=== PATIENT | male | born 1955 | race Two or more races ===

== ENCOUNTER 2018-07-06 19:21 | Inpatient (IN) | payer MEDICARE, OTHER ==
[~2018-07-06] VITALS: Ht 172.7 cm; Wt 66.7 kg
--- NOTE | 2018-07-06 19:21 | NUR ---
ED Nurse Note: pt brought in by amb from [facility] c/o abd pain started today and snf staff gave pt tylenol and seroquel prior to coming to hospital. pt denied abd pain nor n/v/d ENR to hospital, pt currently denies pain, no n/v/d noted. pt AA&ox4, gcs=15, skin warm and dry, resp even and unlabored on RA, will cont monitor. VSS.
[2018-07-06 19:30] VITALS: BP 120/60
--- NOTE | 2018-07-06 19:50 | NUR ---
ED Nurse Note: pt sleeping at this time, fatigued and lethargic, arousable to light pain and shake, iv intact and patent, noted mild congestion but airway intact and resp even and unlabored, will cont monitor.
[2018-07-06 20:06] LABS: EOSINOPHILS % (AUTO) 1.6 % (0.0-3.0); HEMATOCRIT 45.2 % (42.0-52.0); HEMOGLOBIN 14.7 G/DL (14.2-18.0); MEAN CORPUSCULAR VOLUME 96 FL (80-99); MONOCYTES % (AUTO) 7.8 % (1.0-10.0); NEUTROPHILS % (AUTO) 65.7 % (45.0-75.0); PLATELET COUNT 200 K/UL (150-450)
[2018-07-06 20:25] LABS: ANION GAP 8 mmol/L (5-15); BLOOD UREA NITROGEN 13 mg/dL (7-18); CARBON DIOXIDE 30 MMOL/L (21-32); CHLORIDE 101 MMOL/L (98-107); CREATININE 0.7 MG/DL (0.55-1.30); POTASSIUM 4.2 MMOL/L (3.5-5.1); SODIUM 139 MMOL/L (136-145)
[2018-07-06 20:37] LABS: ALANINE AMINOTRANSFERASE 43 U/L (12-78); ALBUMIN 3.7 G/DL (3.4-5.0); ALBUMIN/GLOBULIN RATIO 0.8 (1.0-2.7); ALKALINE PHOSPHATASE 68 U/L (46-116); ASPARTATE AMINO TRANSFERASE 40 U/L (15-37); BILIRUBIN,TOTAL 0.4 MG/DL (0.2-1.0)
--- NOTE | 2018-07-06 21:00 | NUR ---
ED Nurse Note: NOTED O2SAT 88% STARTED PT ON O2 2L VIA NC, ERMD NOTIFIED, WILL CONT MONITOR. O2 SAT WENT UP TO 96%
[2018-07-06 21:15] LABS: APPEARANCE,URINE CLEAR; BILIRUBIN, URINE NEGATIVE (NEGATIVE); COLOR,URINE PALE YELLOW; GLUCOSE, URINE (UA) NEGATIVE (NEGATIVE); KETONES,URINE NEGATIVE (NEGATIVE); LEUKOCYTE ESTERASE ,URINE NEGATIVE (NEGATIVE); NITRITE,URINE NEGATIVE (NEGATIVE); PH,URINE 6 (4.5-8.0); PROTEIN,URINE 3+ (NEGATIVE); UROBILINOGEN,URINE NORMAL MG/DL (0.0-1.0)
[2018-07-06 21:30] VITALS: BP 118/67
--- NOTE | 2018-07-06 22:00 | NUR ---
ED Nurse Note: ERMD NOTIFIED REGARDING PT'S CONDITION O2SAT, RT CONTACTED FOR SUCTION, WILL CONT MONITOR.
--- NOTE | 2018-07-06 22:00 | NUR ---
ED Nurse Note: Noted pressure ulcer on left buttock area possible stg 2. picture taken and uploaded.
[2018-07-06] MEDS ORDERED: NORVASC5 MG ORAL (22:07)
[2018-07-06] MEDS ORDERED: INVEGA SUS156 MG/11 IM (22:07)
[2018-07-06] MEDS ORDERED: TYLENOL EXTRA500 MG ORAL (22:07)
[2018-07-06] MEDS ORDERED: INVEGA3 MG PO (22:07)
[2018-07-06] MEDS ORDERED: MULTIVITAMINS1 EAC8 ORAL (22:07)
[2018-07-06] MEDS ORDERED: FOLIC ACID1 MG ORAL (22:07)
[2018-07-06] MEDS ORDERED: METFORMIN HCL5000 GM MC (22:07)
[2018-07-06] MEDS ORDERED: SEROQUEL50 MG ORAL (22:08)
--- NOTE | 2018-07-06 22:43 | Emergency Room Report ---
History of Present Illness General Chief Complaint: Abdominal Pain Source: Patient, EMS Present Illness HPI This patient [facility]. There was concern that the patient was having abdominal pain. He also has a known ventral hernia. He was given Seroquel and Tylenol just prior to arrival. The patient himself denies pain. There is no other complaints. Allergies: Coded Allergies: No Known Allergies (Unverified , 07/06/18) Patient History Past Medical History: see triage record, old chart reviewed, DM, CVA/TIA, other Social History: Denies: smoking, alcohol use, drug use Reviewed Nursing Documentation: PMH: Agreed; PSxH: Agreed Nursing Documentation-PMH Hx Diabetes: Yes Hx Gastrointestinal Problems: Yes - Constipation Hx Dialysis: Yes - Hep C History Of Psychiatric Problem: Yes - Schizo, Bibolar Hx Cerebrovascular Accident: Yes - atherosclerotic Review of Systems All Other Systems: negative except mentioned in HPI Physical Exam Vital Signs Date Time Temp Pulse Resp B/P (MAP) Pulse Ox O2 Delivery O2 Flow Rate FiO2 07/06/18 19:09 97.5 83 22 127/60 94 Room Air Sp02 EP Interpretation: reviewed, normal General Appearance: no apparent distress, alert, GCS 15, non-toxic Head: normocephalic, atraumatic Eyes: bilateral eye normal inspection, bilateral eye PERRL ENT: hearing grossly normal, normal pharynx, no angioedema, normal voice Neck: full range of motion, supple/symm/no masses Respiratory: chest non-tender, lungs clear, normal breath sounds, no respiratory distress, no retraction, no accessory muscle use, speaking full sentences Cardiovascular #1: regular rate, rhythm, no edema Gastrointestinal: normal bowel sounds, non tender, soft, non-distended, no guarding, no rebound, other - Large reducible ventral hernia Rectal: deferred Musculoskeletal: back normal, gait/station normal, normal range of motion, non- tender Neurologic: alert, oriented x3, responsive, motor strength/tone normal, sensory intact, speech normal Psychiatric: judgement/insight normal, memory normal, mood/affect normal, no suicidal/homicidal ideation Skin: normal color, no rash, warm/dry, well hydrated Medical Decision Making Diagnostic Impression: Primary Impression: Ventral hernia Additional Impression: Hypoxemia ER Course This patient has a reducible ventral hernia. There was no evidence of an acute abdomen during the patient's ED course. I am unsure why this patient was originally sent here to the emergency department. However, after planning to send this patient back to the penitentiary facility, the patient had profound episodes of hypoxemia. The patient was dropped his O2 saturations to 80%. This was primarily during sleeping episodes but was occurring recurrently. The patient did improve with oxygen. Possibly this patient has obstructive sleep apnea. Regardless, used to saturations were so profound that I did not feel comfortable sending this patient back to the penitentiary facility at this time. The patient will be admitted for further evaluation and monitoring of his hypoxemia. Laboratory Tests Test 07/06/18 19:45 07/06/18 20:46 White Blood Count 8.0 K/UL (4.8-10.8) Red Blood Count 4.70 M/UL (4.70-6.10) Hemoglobin 14.7 G/DL (14.2-18.0) Hematocrit 45.2 % (42.0-52.0) Mean Corpuscular Volume 96 FL (80-99) Mean Corpuscular Hemoglobin 31.2 PG (27.0-31.0) H Mean Corpuscular Hemoglobin Concent 32.5 G/DL (32.0-36.0) Red Cell Distribution Width 14.0 % (11.6-14.8) Platelet Count 200 K/UL (150-450) Mean Platelet Volume 6.6 FL (6.5-10.1) Neutrophils (%) (Auto) 65.7 % (45.0-75.0) Lymphocytes (%) (Auto) 24.0 % (20.0-45.0) Monocytes (%) (Auto) 7.8 % (1.0-10.0) Eosinophils (%) (Auto) 1.6 % (0.0-3.0) Basophils (%) (Auto) 1.0 % (0.0-2.0) Sodium Level 139 MMOL/L (136-145) Potassium Level 4.2 MMOL/L (3.5-5.1) Chloride Level 101 MMOL/L (98-107) Carbon Dioxide Level 30 MMOL/L (21-32) Anion Gap 8 mmol/L (5-15) Blood Urea Nitrogen 13 mg/dL (7-18) Creatinine 0.7 MG/DL (0.55-1.30) Estimate Glomerular Filtration Rate > 60 mL/min (>60) Glucose Level 95 MG/DL (74-106) Calcium Level 10.0 MG/DL (8.5-10.1) Total Bilirubin 0.4 MG/DL (0.2-1.0) Aspartate Amino Transferase (AST) 40 U/L (15-37) H Alanine Aminotransferase (ALT) 43 U/L (12-78) Alkaline Phosphatase 68 U/L (46-116) Troponin I 0.000 ng/mL (0.000-0.056) Total Protein 8.5 G/DL (6.4-8.2) H Albumin 3.7 G/DL (3.4-5.0) Globulin 4.8 g/dL Albumin/Globulin Ratio 0.8 (1.0-2.7) L Lipase 167 U/L (73-393) Urine Color Pale yellow Urine Appearance Clear Urine pH 6 (4.5-8.0) Urine Specific [place] 1.015 (1.005-1.035) Urine Protein 3+ (NEGATIVE) H Urine Glucose (UA) Negative (NEGATIVE) Urine Ketones Negative (NEGATIVE) Urine Blood Negative (NEGATIVE) Urine Nitrite Negative (NEGATIVE) Urine Bilirubin Negative (NEGATIVE) Urine Urobilinogen Normal MG/DL (0.0-1.0) Urine Leukocyte Esterase Negative (NEGATIVE) Urine RBC 0-2 /HPF (0 - 0) H Urine WBC 0-2 /HPF (0 - 0) Urine Squamous Epithelial Cells None /LPF (NONE/OCC) Urine Bacteria None /HPF (NONE) EKG Diagnostic Results Rate: normal Rhythm: NSR ST Segments: no acute changes Rhythm Strip Diag. Results EP Interpretation: yes Rate: 90's Rhythm: NSR, other - Occassional PVC's Chest X-Ray Diagnostic Results Chest X-Ray Diagnostic Results : Chest X-Ray Ordered: Yes # of Views/Limited/Complete: 1 View Indication: Other Interpretation: no consolidation, no effusion, no pneumothorax, no acute cardiopulmonary disease Impression: No acute disease Electronically Signed by: Nkechi Lund DO CT/MRI/US Diagnostic Results CT/MRI/US Diagnostic Results : Imaging Test Ordered: CT head Impression No acute findings. Specifically no intracranial bleed, mass effect or edema. See official report. Last Vital Signs Date Time Temp Pulse Resp B/P (MAP) Pulse Ox O2 Delivery O2 Flow Rate FiO2 07/06/18 22:02 97.5 87 20 120/60 94 Room Air Disposition: ADMITTED INPATIENT Condition: Serious Scripts Metformin Hcl* (METFORMIN HCL*) 500 Mg Tablet 500 MG ORAL TWICE A DAY, #60 TAB Prov: Byron Chu MD 07/08/18 Referrals: Tej Kulkarni MD (PCP) Nkechi Lund DO Jul 06, 2018 22:43
--- NOTE | 2018-07-06 22:45 | NUR ---
ED Nurse Note: PT CURRENT O2SAT 96% ON NC 2 L VIA NC, LS MORE CLEAR AFTER SUCTION, DECREASED CONGESTION NOTED, WILL CONT MONITOR.
--- NOTE | 2018-07-06 23:10 | NUR ---
ED Nurse Note: RT at the bedside for ABG, verified with ERMD regarding Bipap status, hold at this time. PT LS= decrease rhonchi, more clear, decreased congestion noted after suction, will cont monitor. No s/s resp distress at this time.
[2018-07-06 23:30] VITALS: BP 126/67
[2018-07-06] MEDS ORDERED: Isovue-300 100ml vial INJ PRN (23:30)
--- NOTE | 2018-07-07 | NUR ---
ED Nurse Note: pt currently agitated, trying to stand out of bed and walk, noted weakness, noted pulled out iv hanging next to pt. Dressing applied, ERMD notified.
[2018-07-07] MEDS ORDERED: LORazepam Inj 2mg/ml 1ml IM ONE (00:45)
[2018-07-07] MEDS ORDERED: LORazepam Inj 2mg/ml 1ml ONE (00:47)
--- NOTE | 2018-07-07 01:00 | NUR ---
ED Nurse Note: pt transferred to new bed, cleaned and changed.
--- NOTE | 2018-07-07 01:20 | NUR ---
ED Nurse Note: IV started on R Upperarm, 20g, pt tolerated well, dressing applied.
[2018-07-07 01:30] VITALS: BP 130/81
--- NOTE | 2018-07-07 02:19 | NUR ---
ED Nurse Note: spoke with Dr. Akbar and received admission order.
[2018-07-07 03:00] VITALS: BP 111/56
--- NOTE | 2018-07-07 03:16 | NUR ---
ED Nurse Note: report given to RN JOSUE and endorsed care, pt sleeping comfortably at this time, VSS, airway intact, resp even and unlabored on NC, NSR on engine monitor. NPO status, IV patent and intact.
--- NOTE | 2018-07-07 03:30 | NUR ---
ED Nurse Note: RECIEVED PT ON GURNEY SLEEPING, PT IS ON HOSPITAL BED, PT IS TO BE ADMITTED TO FLOOR BED WHEN BEDS ARE AVAILABLE THIS AM, PT IS ON CARDIAC MONITORING, HAS PATENT IV LINE IN RIGHT ARM WITH FLUIDS INFUSING, NO SOB OR LABORED BREATHING NOTED, PT O2 SAT=94% ON 2L N/C, PT REPOSITIONED AND TURNED WITH PILLOW SUPPORT, WILL RESUME CARE ORDERED AND CONTINUE TO CLOSELY MONITOR.
[2018-07-07 05:00] VITALS: BP 108/49
--- NOTE | 2018-07-07 05:30 | NUR ---
ED Nurse Note: PT CONTINUES TO SLEEP IN BED, AROUSES TO VERBAL STIMULI, PT REMAINS ON CARDIAC MONITORING, IV SITE PATENT WITH KERLIX WRAPPED, V/S STABLE, NO SOB OR LABORED BREATHING, NAD OR CHANGES NOTED, WILL CONTINUE TO CLOSELY MONITOR WHILE PT WAITING FOR ROOM PLACEMENT.
[2018-07-07 07:00] VITALS: BP 144/67
--- NOTE | 2018-07-07 07:15 | NUR ---
ED Nurse Note: SHIFT REPORT GIVEN TO AM NURSE, PT TO BE ADMITTED TO FLOOR BED, PT IN BED SLEEPING HAS INTERMITTENT PERIODS WHERE HE YELLS OUT AND SHOUTS WANTING TO GO HOME, PT REORIENTED AND REMAINS CALM IN BED, NAD NOTED DURING SHIFT REPORT, IV SITE PATENT.
[2018-07-07] MEDS: NovoLOG Insulin Flexpen SUBQ SCH ×4 (07:30→21:00)
--- NOTE | 2018-07-07 07:30 | NUR ---
ED Nurse Note: Received patient in bed a/o x 3, able to make his needs known. VSS, see flowsheet. school lunch monitor applied. Resp even and unlabored. IV site intact, patent, infusing IVF as ordered.
--- NOTE | 2018-07-07 07:50 | NUR ---
ED Nurse Note: blood drawn and sent down to lab.
[2018-07-07 08:15] VITALS: BP 148/72
[2018-07-07 08:19] LABS: BASOPHILS % (AUTO) 0.7 % (0.0-2.0); EOSINOPHILS % (AUTO) 1.3 % (0.0-3.0); HEMATOCRIT 40.3 % (42.0-52.0); HEMOGLOBIN 12.9 G/DL (14.2-18.0); LYMPHOCYTES % (AUTO) 20.4 % (20.0-45.0); MEAN CORPUSCULAR VOLUME 96 FL (80-99); MONOCYTES % (AUTO) 8.2 % (1.0-10.0); NEUTROPHILS % (AUTO) 69.4 % (45.0-75.0); PLATELET COUNT 208 K/UL (150-450); RED BLOOD COUNT 4.21 M/UL (4.70-6.10); RED CELL DISTRIBUTION WIDTH 13.9 % (11.6-14.8); WHITE BLOOD COUNT 7.1 K/UL (4.8-10.8)
[2018-07-07 08:31] LABS: ANION GAP 6 mmol/L (5-15); BLOOD UREA NITROGEN 11 mg/dL (7-18); CALCIUM 9.4 MG/DL (8.5-10.1); CARBON DIOXIDE 29 MMOL/L (21-32); CHLORIDE 105 MMOL/L (98-107); CREATININE 0.6 MG/DL (0.55-1.30); POTASSIUM 3.8 MMOL/L (3.5-5.1); SODIUM 140 MMOL/L (136-145)
--- NOTE | 2018-07-07 08:49 | NUR ---
ED Nurse Note: Report given to Cornelia JONES over the phone. endorsed patient to Cornelia JONES, patient transferred to [facility]. Dr Hager by the bedside. No belongings noted, patient went up on the [facility] bed, bed alarm on, call light within reach. IV site intact, patent.
--- NOTE | 2018-07-07 08:50 | NUR ---
NURSE NOTES: Received report from Adelia JONES over the phone. Pt was admitted from ER, via hospital bed. Pt is awake, alert, oriented x2, confused. Pt is on room air, with sP02 at 96%. No signs/symptoms or reports of pain or any discomfort at this time. IV access is on right UA #20G, saline lock, patent/intact. Pt has no belongings with him. Pt is refusing the Tele monitor, Dr Hager informed, and order given to transfer pt to med-surg. Pt is confused, agitated, attempting to get out of bed. Skin has left buttocks stage II. Bed is placed in lowest position, three side rails up, brakes engaged, alarm on, call light within easy reach. Will continue to monitor pt and follow plan of care per MD orders and protocol. Pt to be transferred to med surg once room becomes available. Charge nurse aware.
[2018-07-07] MEDS ORDERED: Pantoprazole Inj IVP SCH (09:00)
[2018-07-07] MEDS ORDERED: Heparin 5000 units/ml inj SUBQ SCH (09:00)
--- NOTE | 2018-07-07 09:49 | Diagnostic Imaging Report ---
Indication: Headache Technique: Contiguous 5 mm thick transaxial imaging of the head obtained in a Siemens Sensation [address] scanner. Soft tissue and bone windows generated. Automatic Exposure Control was utilized. Total Dose length Product (DLP): 1439.[address] Dose Index Volume (CTDIvol): 70.38 mGy Comparison: none Findings: There is mild prominence of the ventricles, basal cisterns, and cerebral sulci consistent with atrophy. Mild, nonspecific, white matter hypoattenuation is noted throughout the brain consistent with chronic small vessel disease. There is no midline shift, edema, acute hemorrhage, mass effect, or abnormal extra-axial fluid collections. Bones and extra osseous soft tissues are unremarkable. Impression: No acute intracranial bleed, mass effect or edema. Mild atrophy of the brain. Nonspecific white matter hypoattenuation probably due to chronic small vessel disease. [facility] has communicated the preliminary results to the Emergency Department. Their findings are largely concordant with this report. The CT scanner at [facility] is accredited by the [employer] and the scans are performed using dose optimization techniques as appropriate to a performed exam including Automatic Exposure control.
--- NOTE | 2018-07-07 11:41 | Diagnostic Imaging Report ---
Indication: Dyspnea Comparison: None A single view chest radiograph was obtained. Findings: There is mild left basal atelectasis. Heart size is normal. The bones are osteopenic. Degenerative changes of the left glenohumeral joint incidentally noted with extensive heterotopic bone or osteophyte formation projecting inferiorly. IMPRESSION: No acute cardiopulmonary disease
--- NOTE | 2018-07-07 12:20 | Consultation ---
History of Present Illness General Chief Complaint: Abdominal Pain Present Illness HPI 63 yo male with hx of schizophrenia and mmp who was admitted for medical stabilization. the pt was yelling and agitated. the pt is delusional and not able to answer the questions appropriately. the pt is delusional. the pt is disoriented and delusional. the pt is unable to understand, process, communicate or appreciate the info given to him. the pt stated that he wanted to leave [facility]. the pt lacks capacity to make decision or leave [facility] Allergies: Coded Allergies: No Known Allergies (Unverified , 07/06/18) Medication History Scheduled Amlodipine Besylate (Norvasc), 5 MG ORAL DAILY, (Reported) Folic Acid* (Folic Acid*), 1 MG ORAL DAILY, (Reported) Multivitamin With Minerals (Multivitamins With Minerals*), 1 TAB ORAL DAILY, ( Reported) Quetiapine Fumarate (Seroquel), 50 MG ORAL TWICE A DAY, (Reported) Scheduled PRN Acetaminophen* (Tylenol Extra Strength*), 325 MG ORAL Q6H PRN for Mild Pain/ Temp > 100.5, (Reported) Miscellaneous Medications Metformin Hcl (Metformin Hcl), 5,000 GM MC, (Reported) Paliperidone (Invega), 3 MG PO, (Reported) Paliperidone Palmitate (Invega Sustenna), 156 MG IM, (Reported) Patient History Limited by: medical condition History Provided By: Patient, Medical Record, PMD Healthcare decision maker Resuscitation status Full Code Advanced Directive on File No Past Medical/Surgical History Past Medical/Surgical History: (1) Ventral hernia (2) Hypoxemia Review of Systems Psychiatric: Reports: prior hx, anxiety, depressed feelings, emotional problems , hallucinations Physical Exam General Appearance: WD/WN, no apparent distress, alert, confused, agitated Last 24 Hour Vital Signs Date Time Temp Pulse Resp B/P (MAP) Pulse Ox O2 Delivery O2 Flow Rate FiO2 07/07/18 09:30 91 148/72 07/07/18 09:07 98.3 91 22 148/72 94 Room Air 2.0 07/07/18 08:40 Nasal Cannula 2.0 07/07/18 08:15 98.3 91 22 148/72 94 Room Air 07/07/18 07:00 98.3 89 18 144/67 95 Nasal Cannula 2.0 07/07/18 05:00 98.3 85 18 108/49 95 Nasal Cannula 2.0 07/07/18 03:00 97.6 85 18 111/56 96 Nasal Cannula 2.0 07/07/18 01:30 98.2 86 20 130/81 93 Nasal Cannula 2.0 07/06/18 23:30 97.4 82 18 126/67 96 Nasal Cannula 2.0 07/06/18 22:02 97.5 87 20 120/60 94 Room Air 07/06/18 21:30 97.6 81 16 118/67 96 Nasal Cannula 2.0 07/06/18 19:30 97.5 87 20 120/60 94 Room Air 07/06/18 19:30 87 20 Nasal Cannula 2.0 07/06/18 19:09 97.5 83 22 127/60 94 Room Air Laboratory Tests Test 07/06/18 19:45 07/06/18 20:46 07/06/18 23:17 07/07/18 08:07 White Blood Count 8.0 K/UL (4.8-10.8) 7.1 K/UL (4.8-10.8) # Red Blood Count 4.70 M/UL (4.70-6.10) 4.21 M/UL (4.70-6.10) L Hemoglobin 14.7 G/DL (14.2-18.0) 12.9 G/DL (14.2-18.0) L Hematocrit 45.2 % (42.0-52.0) 40.3 % (42.0-52.0) L Mean Corpuscular Volume 96 FL (80-99) 96 FL (80-99) Mean Corpuscular Hemoglobin 31.2 PG (27.0-31.0) H 30.7 PG (27.0-31.0) Mean Corpuscular Hemoglobin Concent 32.5 G/DL (32.0-36.0) 32.0 G/DL (32.0-36.0) Red Cell Distribution Width 14.0 % (11.6-14.8) 13.9 % (11.6-14.8) Platelet Count 200 K/UL (150-450) 208 K/UL (150-450) Mean Platelet Volume 6.6 FL (6.5-10.1) 6.6 FL (6.5-10.1) Neutrophils (%) (Auto) 65.7 % (45.0-75.0) 69.4 % (45.0-75.0) Lymphocytes (%) (Auto) 24.0 % (20.0-45.0) 20.4 % (20.0-45.0) Monocytes (%) (Auto) 7.8 % (1.0-10.0) 8.2 % (1.0-10.0) Eosinophils (%) (Auto) 1.6 % (0.0-3.0) 1.3 % (0.0-3.0) Basophils (%) (Auto) 1.0 % (0.0-2.0) 0.7 % (0.0-2.0) Sodium Level 139 MMOL/L (136-145) 140 MMOL/L (136-145) Potassium Level 4.2 MMOL/L (3.5-5.1) 3.8 MMOL/L (3.5-5.1) Chloride Level 101 MMOL/L (98-107) 105 MMOL/L (98-107) Carbon Dioxide Level 30 MMOL/L (21-32) 29 MMOL/L (21-32) Anion Gap 8 mmol/L (5-15) 6 mmol/L (5-15) Blood Urea Nitrogen 13 mg/dL (7-18) 11 mg/dL (7-18) Creatinine 0.7 MG/DL (0.55-1.30) 0.6 MG/DL (0.55-1.30) Estimat Glomerular Filtration Rate > 60 mL/min (>60) > 60 mL/min (>60) Glucose Level 95 MG/DL (74-106) 106 MG/DL (74-106) Calcium Level 10.0 MG/DL (8.5-10.1) 9.4 MG/DL (8.5-10.1) Total Bilirubin 0.4 MG/DL (0.2-1.0) Aspartate Amino Transf (AST/SGOT) 40 U/L (15-37) H Alanine Aminotransferase (ALT/SGPT) 43 U/L (12-78) Alkaline Phosphatase 68 U/L (46-116) Troponin I 0.000 ng/mL (0.000-0.056) Total Protein 8.5 G/DL (6.4-8.2) H Albumin 3.7 G/DL (3.4-5.0) Globulin 4.8 g/dL Albumin/Globulin Ratio 0.8 (1.0-2.7) L Lipase 167 U/L (73-393) Urine Color Pale yellow Urine Appearance Clear Urine pH 6 (4.5-8.0) Urine Specific [place] 1.015 (1.005-1.035) Urine Protein 3+ (NEGATIVE) H Urine Glucose (UA) Negative (NEGATIVE) Urine Ketones Negative (NEGATIVE) Urine Blood Negative (NEGATIVE) Urine Nitrite Negative (NEGATIVE) Urine Bilirubin Negative (NEGATIVE) Urine Urobilinogen Normal MG/DL (0.0-1.0) Urine Leukocyte Esterase Negative (NEGATIVE) Urine RBC 0-2 /HPF (0 - 0) H Urine WBC 0-2 /HPF (0 - 0) Urine Squamous Epithelial Cells None /LPF (NONE/OCC) Urine Bacteria None /HPF (NONE) Arterial Blood pH 7.367 (7.350-7.450) Arterial Blood Partial Pressure CO2 50.5 mmHg (35.0-45.0) H Arterial Blood Partial Pressure O2 88.7 mmHg (75.0-100.0) Arterial Blood HCO3 28.3 mmol/L (22.0-26.0) H Arterial Blood Oxygen Saturation 95.9 % (95-100) Arterial Blood Base Excess 2.2 (-2-2) H Ramez Test Positive Microbiology Date/Time Source Procedure Growth Status 07/07/18 02:00 Rectum Received Height (Feet): 5 Height (Inches): 8.00 Weight (Pounds): 147 Medications Current Medications Medications (Trade) Dose Ordered Sig/Lyric Route PRN Reason Start Time Stop Time Status Last Admin Dose Admin Amlodipine Besylate (Norvasc) 5 mg DAILY ORAL 07/07/18 09:00 08/06/18 08:59 07/07/18 09:30 Dextrose (Dextrose 50%) 25 ml Q30M PRN IV Hypoglycemia 07/07/18 02:30 08/06/18 02:29 Dextrose (Dextrose 50%) 50 ml Q30M PRN IV Hypoglycemia 07/07/18 02:30 08/06/18 02:29 Folic Acid (Folate) 1 mg DAILY ORAL 07/07/18 09:00 08/06/18 08:59 2/22/19 09:30 Heparin Sodium (Porcine) (Heparin 5000 units/ml) 5,000 units BID SUBQ 07/07/18 09:00 08/06/18 08:59 Insulin Aspart (NovoLOG) BEFORE MEALS AND HS SUBQ 07/07/18 06:30 08/06/18 06:29 Iopamidol (Isovue-300 100ml) 100 ml NOW PRN INJ Radiology Procedure 07/06/18 23:30 Pantoprazole (Protonix) 40 mg DAILY IVP 07/07/18 09:00 08/06/18 08:59 07/07/18 09:30 Risperidone (RisperDAL) 2 mg BEDTIME ORAL 07/07/18 21:00 08/06/18 20:59 Sodium Chloride 1,000 ml @ 75 mls/hr [id number] IV 07/07/18 02:30 08/06/18 02:29 Assessment/Plan Problem List: (1) Schizophrenia ICD Codes: F20.9 - Schizophrenia, unspecified SNOMED: 39479218 (2) Acute metabolic encephalopathy ICD Codes: G93.41 - Metabolic encephalopathy SNOMED: 18810211, [id number] Assessment/Plan Haldol dec 50mg IM x 1 time dc Seroquel Risperdal 2mg po qhs the pt lacks capacity to make decisions/or leave Sujata Ludwig MD Jul 07, 2018 12:20
--- NOTE | 2018-07-07 12:30 | NUR ---
TRANSFER TO FLOOR: Patient transferred to Med-Surg from Tele via hospital bed as ordered. Report given to Jacklyn JONES. Pt has no belongings, list-form signed with the receiving nurse. Skin has left hip/buttocks stage II wound, photo taken with the receiving nurse. Pt was transferred in stable condition. Endorsed plan of care.
[2018-07-07] MEDS ORDERED: Isovue-300 100ml vial INJ PRN (13:00)
[2018-07-07] MEDS ORDERED: Haloperidol Decanoate 50mg Inj IM ONE ×2 (13:30)
--- NOTE | 2018-07-07 13:56 | History and Physical ---
History of Present Illness General Date patient seen: Jul 07, 2018 Time patient seen: 07:45 Reason for Hospitalization: Abdominal Pain Present Illness HPI Patient is a limited historian, comes from [facility] with complaints of abdominal pain per facility report. Patient himself denies any abdominal pain, reports constipation. While in ED patient was noted to have mild transient hypoxemia and agitation and referred for admission. Patient denies any chest pain, palpitations or dyspnea. Past Medical History:Ventral hernia, HCV, alcoholism, schizophrenia, DM2, CAD Social History: Unable to obtain Family History: Unable to obtain Allergies: Coded Allergies: No Known Allergies (Unverified , 07/06/18) Medication History Scheduled Amlodipine Besylate (Norvasc), 5 MG ORAL DAILY, (Reported) Folic Acid* (Folic Acid*), 1 MG ORAL DAILY, (Reported) Multivitamin With Minerals (Multivitamins With Minerals*), 1 TAB ORAL DAILY, ( Reported) Quetiapine Fumarate (Seroquel), 50 MG ORAL TWICE A DAY, (Reported) Scheduled PRN Acetaminophen* (Tylenol Extra Strength*), 325 MG ORAL Q6H PRN for Mild Pain/ Temp > 100.5, (Reported) Miscellaneous Medications Metformin Hcl (Metformin Hcl), 5,000 GM MC, (Reported) Paliperidone (Invega), 3 MG PO, (Reported) Paliperidone Palmitate (Invega Sustenna), 156 MG IM, (Reported) Patient History Healthcare decision maker Resuscitation status Full Code Advanced Directive on File No Review of Systems Constitutional: Reports: sweats Respiratory: Denies: cough, shortness of breath Cardiovascular: Denies: chest pain, edema Gastrointestinal: Reports: constipation; Denies: abdominal pain Musculoskeletal: Denies: back pain Physical Exam General Appearance: no apparent distress, alert HEENT: atraumatic, anicteric Neck: non-tender, supple Respiratory/Chest: lungs clear, normal breath sounds, no respiratory distress Abdomen: normal bowel sounds, non tender, other - Large reducible ventral hernia Last 24 Hour Vital Signs Date Time Temp Pulse Resp B/P (MAP) Pulse Ox O2 Delivery O2 Flow Rate FiO2 07/07/18 09:30 91 148/72 07/07/18 09:07 98.3 91 22 148/72 94 Room Air 2.0 07/07/18 08:40 Nasal Cannula 2.0 07/07/18 08:15 98.3 91 22 148/72 94 Room Air 07/07/18 07:00 98.3 89 18 144/67 95 Nasal Cannula 2.0 07/07/18 05:00 98.3 85 18 108/49 95 Nasal Cannula 2.0 07/07/18 03:00 97.6 85 18 111/56 96 Nasal Cannula 2.0 07/07/18 01:30 98.2 86 20 130/81 93 Nasal Cannula 2.0 07/06/18 23:30 97.4 82 18 126/67 96 Nasal Cannula 2.0 07/06/18 22:02 97.5 87 20 120/60 94 Room Air 07/06/18 21:30 97.6 81 16 118/67 96 Nasal Cannula 2.0 07/06/18 19:30 97.5 87 20 120/60 94 Room Air 07/06/18 19:30 87 20 Nasal Cannula 2.0 07/06/18 19:09 97.5 83 22 127/60 94 Room Air Laboratory Tests Test 07/06/18 19:45 07/06/18 20:46 07/06/18 23:17 07/07/18 08:07 White Blood Count 8.0 K/UL (4.8-10.8) 7.1 K/UL (4.8-10.8) # Red Blood Count 4.70 M/UL (4.70-6.10) 4.21 M/UL (4.70-6.10) L Hemoglobin 14.7 G/DL (14.2-18.0) 12.9 G/DL (14.2-18.0) L Hematocrit 45.2 % (42.0-52.0) 40.3 % (42.0-52.0) L Mean Corpuscular Volume 96 FL (80-99) 96 FL (80-99) Mean Corpuscular Hemoglobin 31.2 PG (27.0-31.0) H 30.7 PG (27.0-31.0) Mean Corpuscular Hemoglobin Concent 32.5 G/DL (32.0-36.0) 32.0 G/DL (32.0-36.0) Red Cell Distribution Width 14.0 % (11.6-14.8) 13.9 % (11.6-14.8) Platelet Count 200 K/UL (150-450) 208 K/UL (150-450) Mean Platelet Volume 6.6 FL (6.5-10.1) 6.6 FL (6.5-10.1) Neutrophils (%) (Auto) 65.7 % (45.0-75.0) 69.4 % (45.0-75.0) Lymphocytes (%) (Auto) 24.0 % (20.0-45.0) 20.4 % (20.0-45.0) Monocytes (%) (Auto) 7.8 % (1.0-10.0) 8.2 % (1.0-10.0) Eosinophils (%) (Auto) 1.6 % (0.0-3.0) 1.3 % (0.0-3.0) Basophils (%) (Auto) 1.0 % (0.0-2.0) 0.7 % (0.0-2.0) Sodium Level 139 MMOL/L (136-145) 140 MMOL/L (136-145) Potassium Level 4.2 MMOL/L (3.5-5.1) 3.8 MMOL/L (3.5-5.1) Chloride Level 101 MMOL/L (98-107) 105 MMOL/L (98-107) Carbon Dioxide Level 30 MMOL/L (21-32) 29 MMOL/L (21-32) Anion Gap 8 mmol/L (5-15) 6 mmol/L (5-15) Blood Urea Nitrogen 13 mg/dL (7-18) 11 mg/dL (7-18) Creatinine 0.7 MG/DL (0.55-1.30) 0.6 MG/DL (0.55-1.30) Estimat Glomerular Filtration Rate > 60 mL/min (>60) > 60 mL/min (>60) Glucose Level 95 MG/DL (74-106) 106 MG/DL (74-106) Calcium Level 10.0 MG/DL (8.5-10.1) 9.4 MG/DL (8.5-10.1) Total Bilirubin 0.4 MG/DL (0.2-1.0) Aspartate Amino Transf (AST/SGOT) 40 U/L (15-37) H Alanine Aminotransferase (ALT/SGPT) 43 U/L (12-78) Alkaline Phosphatase 68 U/L (46-116) Troponin I 0.000 ng/mL (0.000-0.056) Total Protein 8.5 G/DL (6.4-8.2) H Albumin 3.7 G/DL (3.4-5.0) Globulin 4.8 g/dL Albumin/Globulin Ratio 0.8 (1.0-2.7) L Lipase 167 U/L (73-393) Urine Color Pale yellow Urine Appearance Clear Urine pH 6 (4.5-8.0) Urine Specific [place] 1.015 (1.005-1.035) Urine Protein 3+ (NEGATIVE) H Urine Glucose (UA) Negative (NEGATIVE) Urine Ketones Negative (NEGATIVE) Urine Blood Negative (NEGATIVE) Urine Nitrite Negative (NEGATIVE) Urine Bilirubin Negative (NEGATIVE) Urine Urobilinogen Normal MG/DL (0.0-1.0) Urine Leukocyte Esterase Negative (NEGATIVE) Urine RBC 0-2 /HPF (0 - 0) H Urine WBC 0-2 /HPF (0 - 0) Urine Squamous Epithelial Cells None /LPF (NONE/OCC) Urine Bacteria None /HPF (NONE) Arterial Blood pH 7.367 (7.350-7.450) Arterial Blood Partial Pressure CO2 50.5 mmHg (35.0-45.0) H Arterial Blood Partial Pressure O2 88.7 mmHg (75.0-100.0) Arterial Blood HCO3 28.3 mmol/L (22.0-26.0) H Arterial Blood Oxygen Saturation 95.9 % (95-100) Arterial Blood Base Excess 2.2 (-2-2) H Ramez Test Positive Microbiology Date/Time Source Procedure Growth Status 07/07/18 02:00 Rectum Received Height (Feet): 5 Height (Inches): 8.00 Weight (Pounds): 147 Medications Current Medications Medications (Trade) Dose Ordered Sig/Lyric Route PRN Reason Start Time Stop Time Status Last Admin Dose Admin Amlodipine Besylate (Norvasc) 5 mg DAILY ORAL 07/08/18 09:00 08/06/18 08:59 Dextrose (Dextrose 50%) 25 ml Q30M PRN IV Hypoglycemia 07/07/18 13:00 08/06/18 02:29 Dextrose (Dextrose 50%) 50 ml Q30M PRN IV Hypoglycemia 07/07/18 13:00 08/06/18 02:29 Folic Acid (Folate) 1 mg DAILY ORAL 07/08/18 09:00 08/06/18 08:59 Heparin Sodium (Porcine) (Heparin 5000 units/ml) 5,000 units Q12HR SUBQ 07/07/18 21:00 08/06/18 20:59 Insulin Aspart (NovoLOG) BEFORE MEALS AND HS SUBQ 07/07/18 16:30 08/06/18 06:29 Iopamidol (Isovue-300 100ml) 100 ml NOW PRN INJ Radiology Procedure 07/07/18 13:00 07/08/18 23:29 Pantoprazole (Protonix) 40 mg DAILY IVP 07/08/18 09:00 08/06/18 08:59 Risperidone (RisperDAL) 2 mg BEDTIME ORAL 07/07/18 21:00 08/06/18 20:59 Sodium Chloride 1,000 ml @ 75 mls/hr [id number] IV 07/07/18 13:00 08/06/18 12:59 Assessment/Plan Assessment/Plan #Transient hypoxemia -lungs clear on exam -negative CXR -continue to monitor off supplemental oxygen #Transient agitation #History of schizophrenia -no evidence of UTI or other metabolic abnormalitis -Psychiatry eval appreciated #History of large ventral hernia -Surgery consulted #CAD -trop negative #Type 2 DM -continue metformin -lispro SS #Alcoholism #Chronic HCV infection -monitor LFTs VTE PPx Full Code Byron Chu MD Jul 07, 2018 13:56
[2018-07-07] MEDS: LORazepam 1mg tab ORAL PRN ×2 (14:30→23:42)
--- NOTE | 2018-07-07 15:19 | Consultation ---
History of Present Illness General Date patient seen: Jul 07, 2018 Reason for Hospitalization: Abdominal Pain Present Illness HPI 63 year old female presented with abdominal pain. no n/v. patient agitated and disruptive during interview. poor historian. Surgery called to evaluate. patient seen, chart reviewed, patient examined. states he is no longer having pain. +BM Allergies: Coded Allergies: No Known Allergies (Unverified , 07/06/18) Medication History Scheduled Amlodipine Besylate (Norvasc), 5 MG ORAL DAILY, (Reported) Folic Acid* (Folic Acid*), 1 MG ORAL DAILY, (Reported) Multivitamin With Minerals (Multivitamins With Minerals*), 1 TAB ORAL DAILY, ( Reported) Quetiapine Fumarate (Seroquel), 50 MG ORAL TWICE A DAY, (Reported) Scheduled PRN Acetaminophen* (Tylenol Extra Strength*), 325 MG ORAL Q6H PRN for Mild Pain/ Temp > 100.5, (Reported) Miscellaneous Medications Metformin Hcl (Metformin Hcl), 5,000 GM MC, (Reported) Paliperidone (Invega), 3 MG PO, (Reported) Paliperidone Palmitate (Invega Sustenna), 156 MG IM, (Reported) Patient History History Provided By: Patient, Medical Record, PMD Healthcare decision maker Resuscitation status Full Code Advanced Directive on File No Past Medical/Surgical History Past Medical/Surgical History: (1) Hypoxemia (2) Schizophrenia (3) Acute metabolic encephalopathy (4) Ventral hernia Social History Social History: (1) Ventral hernia (2) Hypoxemia (3) Schizophrenia (4) Acute metabolic encephalopathy Review of Systems Review of Symptoms General ROS: no weight loss or fever Psychological ROS: no depression or mood changes, no memory loss Ophthalmic ROS: no visual changes or eye irritation ENT ROS: no nasal congestion, hearing loss, dizziness Allergy and Immunology ROS: no allergic symptoms or urticaria Hematological and Lymphatic ROS: no swollen glands, unusual bleeding or bruising Endocrine ROS: no polyuria, polydipsia, weight changes, temperature intolerance Respiratory ROS: no cough, shortness of breath, or wheezing Cardiovascular ROS: no chest pain or dyspnea on exertion Gastrointestinal ROS: denies abdominal pain, bright red blood in stool. Musculoskeletal ROS: no myalgias or arthralgias Neurological ROS: no TIA or stroke symptoms Dermatological ROS: no new or changing skin lesions, rashes or pruritis Physical Exam Physical Exam General appearance: alert, cooperative, no distress, appears stated age Head: Normocephalic, without obvious abnormality, atraumatic Eyes: conjunctivae/corneas clear. PERRL, EOM's intact. Fundi benign Throat: Lips, mucosa, and tongue normal. Teeth and gums normal Neck: supple, symmetrical, trachea midline, no adenopathy, thyroid: not enlarged, symmetric, no tenderness/mass/nodules, no carotid bruit and no JVD Lungs: clear to auscultation bilaterally Heart: regular rate and rhythm, S1, S2 normal, no murmur, click, rub or gallop Abdomen: soft, non-tender. Bowel sounds normal. No masses, no organomegaly. reducible ventral hernia Extremities: extremities normal, atraumatic, no cyanosis or edema Pulses: 2+ and symmetric Skin: Skin color, texture, turgor normal. No rashes or lesions Neurologic: Grossly normal Last 24 Hour Vital Signs Date Time Temp Pulse Resp B/P (MAP) Pulse Ox O2 Delivery O2 Flow Rate FiO2 07/07/18 09:30 91 148/72 07/07/18 09:07 98.3 91 22 148/72 94 Room Air 2.0 07/07/18 08:40 Nasal Cannula 2.0 07/07/18 08:15 98.3 91 22 148/72 94 Room Air 07/07/18 07:00 98.3 89 18 144/67 95 Nasal Cannula 2.0 07/07/18 05:00 98.3 85 18 108/49 95 Nasal Cannula 2.0 07/07/18 03:00 97.6 85 18 111/56 96 Nasal Cannula 2.0 07/07/18 01:30 98.2 86 20 130/81 93 Nasal Cannula 2.0 07/06/18 23:30 97.4 82 18 126/67 96 Nasal Cannula 2.0 07/06/18 22:02 97.5 87 20 120/60 94 Room Air 07/06/18 21:30 97.6 81 16 118/67 96 Nasal Cannula 2.0 07/06/18 19:30 97.5 87 20 120/60 94 Room Air 07/06/18 19:30 87 20 Nasal Cannula 2.0 07/06/18 19:09 97.5 83 22 127/60 94 Room Air Laboratory Tests Test 07/06/18 19:45 07/06/18 20:46 07/06/18 23:17 07/07/18 08:07 White Blood Count 8.0 K/UL (4.8-10.8) 7.1 K/UL (4.8-10.8) # Red Blood Count 4.70 M/UL (4.70-6.10) 4.21 M/UL (4.70-6.10) L Hemoglobin 14.7 G/DL (14.2-18.0) 12.9 G/DL (14.2-18.0) L Hematocrit 45.2 % (42.0-52.0) 40.3 % (42.0-52.0) L Mean Corpuscular Volume 96 FL (80-99) 96 FL (80-99) Mean Corpuscular Hemoglobin 31.2 PG (27.0-31.0) H 30.7 PG (27.0-31.0) Mean Corpuscular Hemoglobin Concent 32.5 G/DL (32.0-36.0) 32.0 G/DL (32.0-36.0) Red Cell Distribution Width 14.0 % (11.6-14.8) 13.9 % (11.6-14.8) Platelet Count 200 K/UL (150-450) 208 K/UL (150-450) Mean Platelet Volume 6.6 FL (6.5-10.1) 6.6 FL (6.5-10.1) Neutrophils (%) (Auto) 65.7 % (45.0-75.0) 69.4 % (45.0-75.0) Lymphocytes (%) (Auto) 24.0 % (20.0-45.0) 20.4 % (20.0-45.0) Monocytes (%) (Auto) 7.8 % (1.0-10.0) 8.2 % (1.0-10.0) Eosinophils (%) (Auto) 1.6 % (0.0-3.0) 1.3 % (0.0-3.0) Basophils (%) (Auto) 1.0 % (0.0-2.0) 0.7 % (0.0-2.0) Sodium Level 139 MMOL/L (136-145) 140 MMOL/L (136-145) Potassium Level 4.2 MMOL/L (3.5-5.1) 3.8 MMOL/L (3.5-5.1) Chloride Level 101 MMOL/L (98-107) 105 MMOL/L (98-107) Carbon Dioxide Level 30 MMOL/L (21-32) 29 MMOL/L (21-32) Anion Gap 8 mmol/L (5-15) 6 mmol/L (5-15) Blood Urea Nitrogen 13 mg/dL (7-18) 11 mg/dL (7-18) Creatinine 0.7 MG/DL (0.55-1.30) 0.6 MG/DL (0.55-1.30) Estimat Glomerular Filtration Rate > 60 mL/min (>60) > 60 mL/min (>60) Glucose Level 95 MG/DL (74-106) 106 MG/DL (74-106) Calcium Level 10.0 MG/DL (8.5-10.1) 9.4 MG/DL (8.5-10.1) Total Bilirubin 0.4 MG/DL (0.2-1.0) Aspartate Amino Transf (AST/SGOT) 40 U/L (15-37) H Alanine Aminotransferase (ALT/SGPT) 43 U/L (12-78) Alkaline Phosphatase 68 U/L (46-116) Troponin I 0.000 ng/mL (0.000-0.056) Total Protein 8.5 G/DL (6.4-8.2) H Albumin 3.7 G/DL (3.4-5.0) Globulin 4.8 g/dL Albumin/Globulin Ratio 0.8 (1.0-2.7) L Lipase 167 U/L (73-393) Urine Color Pale yellow Urine Appearance Clear Urine pH 6 (4.5-8.0) Urine Specific [place] 1.015 (1.005-1.035) Urine Protein 3+ (NEGATIVE) H Urine Glucose (UA) Negative (NEGATIVE) Urine Ketones Negative (NEGATIVE) Urine Blood Negative (NEGATIVE) Urine Nitrite Negative (NEGATIVE) Urine Bilirubin Negative (NEGATIVE) Urine Urobilinogen Normal MG/DL (0.0-1.0) Urine Leukocyte Esterase Negative (NEGATIVE) Urine RBC 0-2 /HPF (0 - 0) H Urine WBC 0-2 /HPF (0 - 0) Urine Squamous Epithelial Cells None /LPF (NONE/OCC) Urine Bacteria None /HPF (NONE) Arterial Blood pH 7.367 (7.350-7.450) Arterial Blood Partial Pressure CO2 50.5 mmHg (35.0-45.0) H Arterial Blood Partial Pressure O2 88.7 mmHg (75.0-100.0) Arterial Blood HCO3 28.3 mmol/L (22.0-26.0) H Arterial Blood Oxygen Saturation 95.9 % (95-100) Arterial Blood Base Excess 2.2 (-2-2) H Ramez Test Positive Microbiology Date/Time Source Procedure Growth Status 07/07/18 02:00 Rectum Received Height (Feet): 5 Height (Inches): 8.00 Weight (Pounds): 147 Medications Current Medications Medications (Trade) Dose Ordered Sig/Lyric Route PRN Reason Start Time Stop Time Status Last Admin Dose Admin Amlodipine Besylate (Norvasc) 5 mg DAILY ORAL 07/08/18 09:00 08/06/18 08:59 Dextrose (Dextrose 50%) 25 ml Q30M PRN IV Hypoglycemia 07/07/18 13:00 08/06/18 02:29 Dextrose (Dextrose 50%) 50 ml Q30M PRN IV Hypoglycemia 07/07/18 13:00 08/06/18 02:29 Divalproex Sodium (Depakote) 250 mg ONCE ORAL 07/07/18 14:30 07/07/18 15:30 Divalproex Sodium (Depakote) 250 mg TID ORAL 07/07/18 18:00 08/06/18 17:59 Folic Acid (Folate) 1 mg DAILY ORAL 07/08/18 09:00 08/06/18 08:59 Heparin Sodium (Porcine) (Heparin 5000 units/ml) 5,000 units Q12HR SUBQ 07/07/18 21:00 08/06/18 20:59 Insulin Aspart (NovoLOG) BEFORE MEALS AND HS SUBQ 07/07/18 16:30 08/06/18 06:29 Iopamidol (Isovue-300 100ml) 100 ml NOW PRN INJ Radiology Procedure 07/07/18 13:00 07/08/18 23:29 Lorazepam (Ativan) 2 mg Q6H PRN ORAL For Anxiety 07/07/18 14:15 07/14/18 14:14 07/07/18 14:30 Pantoprazole (Protonix) 40 mg DAILY IVP 07/08/18 09:00 08/06/18 08:59 Risperidone (RisperDAL) 2 mg BEDTIME ORAL 07/07/18 21:00 08/06/18 20:59 Sodium Chloride 1,000 ml @ 75 mls/hr [id number] IV 07/07/18 13:00 08/06/18 12:59 Assessment/Plan Problem List: (1) Ventral hernia Assessment & Plan: large reducible ventral hernia no obstructive symptoms noted no n/v/f/c. no acute surgical intervention planned will monitor okay for diet thank you ICD Codes: K43.9 - Ventral hernia without obstruction or gangrene SNOMED: [id number] Qualifiers: Qualified Codes: K43.9 - Ventral hernia without obstruction or gangrene Stewart Driver Jul 07, 2018 15:19
--- NOTE | 2018-07-07 19:41 | NUR ---
CASE MANAGEMENT: REVIEW 63/M BIBA FROM [facility] CC: ABD PAIN SI: HYPOXIA T 97.5 HR 87 RR 22 BP 118/67 SAT 94% NC/2L ABG: PH 7.367 PCO2 50.5 PO2 88.7 HCO3 28.3 O2 SAT 95.9 BASE EXCESS 2.2 IS: NS IVF BOLUS X1 ATIVAN IM X1 PATIENT ADMITTED TO MED/SURG UNIT 07/06/2018 DCP: PATIENT IS FROM [facility]
--- NOTE | 2018-07-07 19:45 | NUR ---
NURSE NOTES: Pt received from ROBERT Hargrove. Pt is in bed, asleep. No acute distress noted. Fall precaution in place. Bed low in position,side rails up and call light within reach. Pt will be monitored.
--- NOTE | 2018-07-07 19:46 | NUR ---
HAND-OFF: Report given to Jeremy JONES.
--- NOTE | 2018-07-07 20:00 | NUR ---
NURSE NOTES: Pt is found by Issac Adkins (charge nurse) on the floor sitting down next to the wheel chair. Pt was asked if he fell or hurt any part of the body, pt replied "no". Pt was asked if he hit the head, pt Replied " no". Pt was able to stand up on his own and climb up to the bed without any problems. No bruises or injuries noted. Pt is moved to room 409-2, closer to nursing station. Fall precaution and bed alarm in place. Pt is instructed to call for help before getting out of bed. Bed low in position,side rails up and call light within reach. Pt will be monitored.
[2018-07-07 20:05] VITALS: BP 135/88
--- NOTE | 2018-07-07 21:00 | NUR ---
NURSE NOTES: Dr. Gastelum was notified regarding suspected fall, no new orders received. . asked to closely monitor the patient.
[2018-07-07] MEDS: Heparin 5000 units/ml inj SUBQ SCH (22:32)
--- NOTE | 2018-07-07 22:58 | NUR ---
NURSE NOTES: Pt is in bed, awake and verbal. Pt was able to take medications. Pt was provided with nourishments. Reorientation provided. Pt will be monitored.
[2018-07-08 00:23] VITALS: BP 136/76
--- NOTE | 2018-07-08 03:45 | NUR ---
NURSE NOTES: Pt is up from bed, using wheelchair. Pt is given urinal to void. Pt is assisted back to bed. Fall precaution in place. Pt will be monitored.
[2018-07-08 04:00] VITALS: BP 128/69
--- NOTE | 2018-07-08 05:27 | NUR ---
NURSE NOTES: Pt has no IV access, Pt refuses to have an IV access despite education and encouragement. Unable to start NS 75ml/hr. Pt is eating and drinking enough fluid.
[2018-07-08] MEDS: LORazepam 1mg tab ORAL PRN ×2 (05:57→14:46)
[2018-07-08] MEDS: NovoLOG Insulin Flexpen SUBQ SCH ×3 (06:01→17:03)
--- NOTE | 2018-07-08 07:25 | NUR ---
HAND-OFF: Report given to Delfina Galindo RN.Informed to monitor patient closely as the pt is fall risk.
--- NOTE | 2018-07-08 07:47 | NUR ---
NURSE NOTES: Report received from ROBERT Luna. pt in bed, awake, talkative, no complaints of pain, bed in lowest position, call light within reach
[2018-07-08 08:00] VITALS: BP 130/75
[2018-07-08] MEDS: Pantoprazole Inj IVP SCH ×2 (08:27→08:38)
[2018-07-08] MEDS: Heparin 5000 units/ml inj SUBQ SCH ×2 (08:29→08:38)
--- NOTE | 2018-07-08 09:06 | NUR ---
NURSE NOTES: Pt refusing IV access, eating and drinking. Asked Dr. Gastelum about DC IVF, Dr. Gastelum DC IVF. Pt asking for cough medications, notified , no new orders given
[2018-07-08] MEDS ORDERED: Guaifenesin/DM 10ml syrup ORAL PRN (09:15)
[2018-07-08] MEDS ORDERED: METFORMIN HCL500 M1 ORAL (09:52)
--- NOTE | 2018-07-08 09:58 | Discharge Summary ---
Discharge Summary Hospital Course Date of Admission Jul 06, 2018 at 23:42 Date of Discharge 07/08 Admitting Diagnosis hypoxemia HPI Edward Myrick is a 63 year old male who was admitted on Jul 06, 2018 at 23:42 for Hypoxemia Hospital Course Patient presented with abdominal pain - while in Ed he was noted to have transient mild hypoxemia and mild confusion. Admitted to medical service. Seen by Surgery, no acute interventions for reducible ventral hernia. CXR was negative for acute pathology and he was saturating well on room air. Seen by Psychiatry, no new changes to psychotropic meds. Patient is stable for discharge back to SNF #Transient hypoxemia -lungs clear on exam -negative CXR -continue to monitor off supplemental oxygen #Transient agitation and acute encephalopathy, present on admission #History of schizophrenia -no evidence of UTI or other metabolic abnormalities -Psychiatry eval appreciated #History of large ventral hernia -Surgery cleared #CAD -trop negative #Type 2 DM -continue metformin -lispro SS #Alcoholism #Chronic HCV infection 31 minutes was spent prparing discharge including coordination with nursing and consulting MD Discharge Discharge Disposition Patient was discharged to SNF Discharge Diagnoses: (1) Acute metabolic encephalopathy Byron Chu MD Jul 08, 2018 09:58
[2018-07-08 12:00] VITALS: BP 148/77
--- NOTE | 2018-07-08 13:43 | NUR ---
CASE MANAGEMENT:DCPNOTE UPON DISCHARGE PATIENT WILL TRANSFER BACK TO [facility] [phone] SKILLEDROOM 35 PATIENT IS IN AGREEMENT WITH TRANSFERRING BACK TO THIS FACILITY TRANSPORTATION VIA [facility] [id number] ETA 1600
--- NOTE | 2018-07-08 14:00 | Surgery Progress Note ---
Surgery Progress Note Subjective Additional Comments no acute events. still agitated at times. tolerating diet. Objective Last 24 Hour Vital Signs Date Time Temp Pulse Resp B/P (MAP) Pulse Ox O2 Delivery O2 Flow Rate FiO2 07/08/18 12:00 98.2 97 18 148/77 (100) 96 07/08/18 09:00 Room Air 07/08/18 08:27 65 130/75 07/08/18 08:00 98.8 65 18 130/75 (93) 95 07/08/18 04:00 98.0 79 16 128/69 (88) 94 07/08/18 00:23 98.5 94 17 136/76 (96) 97 07/07/18 21:00 Room Air 07/07/18 20:05 98.3 99 18 135/88 (104) 98 I&O Intake and Output 07/07/18 07/08/18 19:00 07:00 Intake Total 160 ml 480 ml Output Total 500 ml Balance 160 ml -20 ml Intake Oral 160 ml 480 ml Output Urine Total 500 ml # Voids 3 2 Dressing: other Wound: other Drains: other Cardiovascular: RSR Respiratory: clear Abdomen: soft, non-tender, other Extremities: other Plan Problems: (1) Ventral hernia Assessment & Plan: large reducible ventral hernia no obstructive symptoms noted no n/v/f/c. no acute surgical intervention planned will monitor okay for diet okay to d/c with outpatient follow up thank you Stewart Driver Jul 08, 2018 14:00
--- NOTE | 2018-07-08 14:15 | NUR ---
NURSE NOTES: Called report to ROBERT Correa at [facility]
[2018-07-08 16:00] VITALS: BP 127/79
--- NOTE | 2018-07-08 17:56 | NUR ---
NURSE NOTES: Pt discharged back to [facility]. No belongings, no IV access, ID band removed, all discharge paperwork sent with ambulance personnel. Pt stable for discharge
== END 2018-07-08 18:10 | DRG 72 ==
LOC: EDBD 19:21 → EMR 19:55 → 2E 23:42 → EDBEDREQ 07-07 08:05 → 4E 07-07 13:29
DX: G93.41 Metabolic encephalopathy (principal); R09.02 Hypoxemia; K43.9 Ventral hernia without obstruction or gangrene; F20.9 Schizophrenia, unspecified; R45.1 Restlessness and agitation; F10.21 Alcohol dependence, in remission; E11.9 Type 2 diabetes mellitus without complications; I25.10 Atherosclerotic heart disease of native coronary artery without angina pectoris; Z79.84 Long term (current) use of oral hypoglycemic drugs; B18.2 Chronic viral hepatitis C
CPT/HCPCS: 36415; 36600; 70450; 71045; 80048; 80053; 81003; 82803; 82962; 83690; 84484; 85025; 87081; 93005; 96360; 96372; 99284; J1815